=== PATIENT | male | born 1995 | race Caucasian/White ===

== ENCOUNTER → 2024-08-13 10:48 | Outpatient (BNVA) | payer BC, SELFPAY | PROVIDERS: Family Provider Nurse Practitioner Family; PCP Registered Nurse; Visit Provider Student in an Organized Health Care Education/Training Program | DX: S83.8X1A Sprain of other specified parts of right knee, initial encounter; R03.0 Elevated blood-pressure reading, without diagnosis of hypertension; X50.1XXA Overexertion from prolonged static or awkward postures, initial encounter; Y93.61 Activity, american tackle football | CPT/HCPCS: 73560; 73565 ==

== ENCOUNTER 2024-08-23 09:30 | Outpatient (CLI) | payer BC, SELFPAY ==
--- NOTE | 2024-08-23 09:30 | MR_ITS ---
WS: [id number] MRI RIGHT KNEE NONCONTRAST TECHNIQUE: Axial PD, coronal PD fat sat, coronal PD, sagittal PD, and sagittal PD fat-sat images obta ined. CLINICAL INFORMATION: Rule out meniscus tear; bucket handle tear COMPARISON: None. FINDINGS: Distal quadriceps and patella tendons are intact. Small suprapatellar effusion. Mild chondromalacia p atella. No subchondral edema. Medial and lateral patellar retinaculum appear intact. Diffuse increased signal abnormality involving the ACL compatible with partial high-grade tear and li gamentous injury. A few normal fibers are visualized. PCL is normal in appearance. ACL pattern contu manjinder involving the anterolateral femoral condyle and posterolateral tibial plateau. Additional diffus e edema involving the posterior medial tibial plateau. Medial and lateral collateral ligaments appear intact. Longitudinal tear involving the posterior horn lateral meniscus extending to the peripheral articular surface as well as to the meniscal root. Suspected displaced meniscal fragment extending along the i ntercondylar fossa anterior to the PCL. Thinning of the medial meniscus which appears intact. Increased signal in the posterior horn medial m eniscus suspicious for capsular tear with a small amount of fluid and edema. MR/MR knee RT wo con* [id number] IMPRESSION: 1. Diffuse increase signal abnormality involving the ACL compatible with parti al tear. Some intact fibers are visualized with diffuse edema. Recommend correl ation with ACL injury. 2. PCL is intact. 3. Typical ACL contusion pattern involving the anterolateral femoral condyle a nd posterior lateral tibial plateau as well as the posterior medial tibial plat eau with diffuse edema. 4. Suspected capsular tear posterior horn medial meniscus at the peripheral ca psule. Associated fluid and edema. 5. Longitudinal type tear involving the posterior horn lateral meniscus extend ing to the articular surface peripherally as well as to the meniscal root with suggestion of a small displaced fragment along the intercondylar fossa with a b ucket-handle type configuration. 6. Mild chondromalacia patella. 7. Medial and lateral collateral ligaments appear intact. [facility]bridge grading: grade II: blister-like swelling/fraying of articular cartila ge extending to surface
== END 2024-08-23 09:39 | disposition home or self-care (01) ==
PROVIDERS: Family Provider Nurse Practitioner Family; PCP Registered Nurse; Visit Provider Student in an Organized Health Care Education/Training Program
DX: S83.511A Sprain of anterior cruciate ligament of right knee, initial encounter (principal); M23.221 Derangement of posterior horn of medial meniscus due to old tear or injury, right knee; M23.251 Derangement of posterior horn of lateral meniscus due to old tear or injury, right knee; X58.XXXA Exposure to other specified factors, initial encounter
CPT/HCPCS: 73721